=== PATIENT | male | born 1995 | race Caucasian/White ===

== ENCOUNTER 2020-08-27 09:43 | Emergency (ER) | payer MEDICAID, SELFPAY ==
[2020-08-27 10:01] VITALS: BP 109/77; PULSE 91; RESP 16; TEMP 36.6; O2SAT 98; BMI 18.8
--- NOTE | 2020-08-27 10:15 | ED.DENTAL ---
HPI - Dental/Oral General Chief complaint: Dental/Oral Stated complaint: dental pain Time Seen by Provider: 08/27/20 10:15 History of Present Illness HPI Narrative: Left-sided wisdom tooth pain on the bottom, scheduled for removal in 2 weeks, denies any fever chills Related Data Previous Rx's Medication Instructions Recorded acetaminophen 1,000 mg PO Q6H PRN #30 tab 08/27/20 ibuprofen 600 mg PO Q6H PRN #30 tab 08/27/20 oxycodone 5 mg PO Q6H PRN #20 cap 08/27/20 Allergies Allergy/AdvReac Type Severity Reaction Status Date / Time No Known Allergies Allergy Verified 08/27/20 10:17 Review of Systems Review of Systems: Positive for left wisdom tooth pain Negatives are no fever no chills no dizziness no weakness no difficulty breathing or swallowing no swelling under the tongue no skin rash no chest pain no shortness breath PMFSH Past Medical History Source: nursing notes reviewed Medical History (Updated 08/28/20 @ 00:01 by Polina Winter) No known health problems Physical Exam Vital Signs: Vital Signs: Last Vital Signs Temp 98 F 08/27/20 10:01 Pulse 91 08/27/20 10:01 Resp 16 08/27/20 10:01 BP 109/77 08/27/20 10:01 Pulse Ox 98 08/27/20 10:01 Body Mass Index 18.8 General appearance uncomfortable but no acute distress The dental exam showed a decayed tender left lower wisdom tooth, there was no trismus, voice was normal, there was no gum swelling there was no facial swelling no evidence of abscess no impairment of breathing or swallowing Pharynx was clear Neck was supple Respiratory no distress Skin no rash Extremities full range of motion x4 Course Course Course Narrative: Patient is prescribed antibiotic and analgesic and will follow-up as scheduled with his oral surgeon Discharge Plan Discharge Clinical Impression: Toothache Patient Disposition: Home, Self-Care Additional Instructions: Follow as scheduled with oral surgeon for removal of the wisdom teeth Return anytime if worse Best plan is take 2 extra-strength Tylenol, a 1000 mg 3 times a day as well as Motrin 600 mg 4 times a day and if needed you can supplement pain killers with 1 or 2 tablets of oxycodone narcotic pain medicine Continue the antibiotics Prescriptions: New ibuprofen 600 mg tablet 600 mg PO Q6H PRN (Reason: pain) Qty: 30 RF: 0 acetaminophen 500 mg tablet 1,000 mg PO Q6H PRN (Reason: pain) Qty: 30 RF: 0 oxycodone 5 mg capsule 5 mg PO Q6H PRN (Reason: pain) Qty: 20 RF: 0 Discharge Date/Time: 08/27/20 11:04
== END 2020-08-27 11:04 | disposition home or self-care (01) ==
PROVIDERS: Emergency Provider Emergency Medicine
DX: K08.89 Other specified disorders of teeth and supporting structures (principal)
CPT/HCPCS: 99281; 99283

== ENCOUNTER 2020-08-31 12:26 | Outpatient (REF) | payer MEDICAID, SELFPAY ==
[2020-08-31 14:16] LABS: COVID-19 Test Negative (Negative)
== END 2020-08-31 12:27 | disposition home or self-care (01) ==
LOC: HO.LAB 12:26
PROVIDERS: Visit Provider Internal Medicine
DX: Z20.822 Contact with and (suspected) exposure to COVID-19 (principal)
CPT/HCPCS: 36415; 87635; C9803

== ENCOUNTER 2020-12-15 07:59 | Emergency (ER) | payer MEDICAID, SELFPAY ==
[2020-12-15 08:45] VITALS: BP 101/66; PULSE 88; RESP 18; TEMP 36.7; O2SAT 100; BMI 19.3
[2020-12-15] MEDS: Ketorolac Tromethamine 15 MG/ML VIAL IM ×2 (10:17→10:19)
--- NOTE | 2020-12-15 10:41 | ED.DENTAL ---
HPI - Dental/Oral General Chief complaint: Dental/Oral Stated complaint: Dental pain Time Seen by Provider: 12/15/20 09:47 Source: patient Mode of arrival: ambulatory Limitations: no limitations History of Present Illness HPI Narrative: Patient presents to ED for wisdom tooth pain. Patient states he was informed that wisdom tooth needs to be extracted as per dentist, but patient has not followed up with the oral surgeon to remove tooth. Patient denies any facial swelling or recent trauma to the face. MD Complaint: tooth pain Related Data Previous Rx's Medication Instructions Recorded acetaminophen 1,000 mg PO Q6H PRN #30 tab 08/27/20 ibuprofen 600 mg PO Q6H PRN #30 tab 08/27/20 oxycodone 5 mg PO Q6H PRN #20 cap 08/27/20 amoxicillin-pot clavulanate 1 tab PO Q12H 10 Days #20 tab 12/15/20 [Augmentin] ketorolac 10 mg PO Q6H PRN 5 Days #20 tab 12/15/20 Allergies Allergy/AdvReac Type Severity Reaction Status Date / Time No Known Allergies Allergy Verified 08/27/20 10:17 Review of Systems Review of Systems: Yes all other systems are reviewed and are negative Constitutional: Constitutional: Reports as per HPI and Reports no additional constitutional complaints Eyes: Eyes: Reports as per HPI and Reports no additional eye complaints ENT: Reports system reviewed and no additional complaints, except as documented and Reports as per HPI Comments: Dental pain Cardiovascular: Cardiovascular: Reports as per HPI and Reports no additional cardiovascular complaints Respiratory: Respiratory: Reports as per HPI and Reports no additional respiratory complaints Gastrointestinal: Gastrointestinal: Reports as per HPI and Reports no additional gastrointestinal complaints Genitourinary: Genitourinary: Reports no additional male genitourinary complaints and Reports as per HPI Musculoskeletal: Musculoskeletal: Reports no additional musculoskeletal complaints and Reports as per HPI Neurologic: Reports system reviewed and no additional complaints, except as documented and Reports as per HPI Psychiatric: Psychiatric: Reports no additional psychiatric complaints and Reports as per HPI [facility] Past Medical History Medical History (Updated 12/15/20 @ 10:46 by HEIDI Kim) Asthma No known health problems Social History Social History Advance Directives: No Advance Directives Information Provided: No Physical Exam Vital Signs: Vital Signs: Last Vital Signs Temp 98.1 F 12/15/20 08:45 Pulse 88 12/15/20 08:45 Resp 18 12/15/20 08:45 BP 101/66 12/15/20 08:45 Pulse Ox 100 12/15/20 08:45 Body Mass Index 19.3 Const: General: cooperative, healthy appearing, comfortable, no acute distress, well developed, alert, awake and Physically active Orientation/consciousness: patient oriented x3 HENMT: Head: Yes normal to inspection, Yes No palpable skull fracture present, Yes normocephalic, Yes atraumatic and No abrasion Teeth image: 1. Tooth is very tender to palpation. Negative for any surrounding gum swelling, erythema, fluctuance, or pus discharge Eyes: General: appearance normal, both eyes and all related structures Neck: Neck: Yes normal visual inspection, Yes full ROM, Yes no lymphadenopathy, Yes no meningeal signs, Yes trachea midline and No supple Skin: General skin exam: no rashes or lesions noted and elasticity normal Neuro: General: patient oriented x3, no meningeal signs and CN's II-XI intact bilaterally Cranial nerves: Yes CN's II-XII intact bilaterally Extrem: General: Yes normal to inspection and Yes full ROM Psych: Appearance: grossly normal, well kempt and not disheveled Course Course Course Narrative: Patient given Toradol for pain relief. No indication for incision and drainage. Reevaluation(s) Reevaluation #1: Patient will be discharged with antibiotics and pain medication. Patient informed to follow-up with dentist for another referral to oral surgeon to remove wisdom tooth. Time: 10:45 MDM - Dental/Oral MDM Narrative Medical decision making narrative: Dental pain Discharge Plan Discharge Clinical Impression: Toothache Patient Disposition: Home, Self-Care Instructions: Toothache (ED) Additional Instructions: Return to the ED immediately for any facial swelling, drooling, change in voice, neck swelling, chest pain, shortness of breath, severe pain, or any other concerning symptoms. Please follow-up with your dentist for referral to oral surgeon for removal of wisdom tooth. Prescriptions: New amoxicillin-pot clavulanate [Augmentin] 875-125 mg tablet 1 tab PO Q12H 10 Days Qty: 20 RF: 0 ketorolac 10 mg tablet 10 mg PO Q6H PRN (Reason: pain) 5 Days Qty: 20 RF: 0 No Action ibuprofen 600 mg tablet 600 mg PO Q6H PRN (Reason: pain) Qty: 30 RF: 0 acetaminophen 500 mg tablet 1,000 mg PO Q6H PRN (Reason: pain) Qty: 30 RF: 0 oxycodone 5 mg capsule 5 mg PO Q6H PRN (Reason: pain) Qty: 20 RF: 0 Interventions: ED Discharge Assessment Last Done: 12/15/20 10:59 Discharge Date/Time: 12/15/20 11:00 Print Language: Estonian
== END 2020-12-15 11:00 | disposition home or self-care (01) ==
PROVIDERS: Emergency Provider Emergency Medicine Emergency Medical Services
DX: K08.89 Other specified disorders of teeth and supporting structures (principal)
CPT/HCPCS: 96372; 99283; 99284; J1885

== ENCOUNTER 2021-01-02 11:05 | Emergency (ER) | payer MEDICAID, SELFPAY ==
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
[2021-01-02 11:18] VITALS: BP 108/63; BP 122/70; PULSE 89; PULSE 97; RESP 14; TEMP 37.1; O2SAT 100; O2SAT 98; BMI 19.3
[2021-01-02] MEDS: Acetaminophen 325 MG TABLET 975 MG PO (12:51)
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
== END 2021-01-02 14:09 | disposition home or self-care (01) ==
PROVIDERS: Emergency Provider Emergency Medicine
DX: S56.911A Strain of unspecified muscles, fascia and tendons at forearm level, right arm, initial encounter (principal); S16.1XXA Strain of muscle, fascia and tendon at neck level, initial encounter; S63.92XA Sprain of unspecified part of left wrist and hand, initial encounter; S50.11XA Contusion of right forearm, initial encounter; V48.0XXA Car driver injured in noncollision transport accident in nontraffic accident, initial encounter; Y93.89 Activity, other specified; Y92.828 Other wilderness area as the place of occurrence of the external cause; Y99.9 Unspecified external cause status
CPT/HCPCS: 70450; 71250; 72125; 73090; 73130; 74176; 99284; 99285

== ENCOUNTER 2021-05-05 08:56 | Emergency (ER) | payer OTHER, SELFPAY ==
--- NOTE | 2021-05-05 09:00 | ED.GENADULT ---
HPI - General Adult General Chief complaint: ETOH/Substance Use Stated complaint: WITHDRAWAL SYMPTOMS S/P SUBOXONE USE Time Seen by Provider: 05/05/21 08:59 Source: patient Mode of arrival: ambulatory Limitations: no limitations History of Present Illness HPI narrative: feels sick after taking suboxone 5 hours after using heroin complaint: used heroin at 2am then took 8/2 suboxone in small bits this AM at 7am Onset (ago): hour(s) (2.5) Radiation: non-radiation Severity: moderate Quality: aching Pain Consistency: constant Relieving factors: none Exacerbating factors: other (using suboxone) Associated symptoms: fever/chills, loss of appetite, malaise and nausea/vomiting Treatments prior to arrival: none Related Data Previous Rx's Medication Instructions Recorded acetaminophen 500 mg tablet 1,000 mg PO Q6H PRN #30 tab 08/27/20 ibuprofen 600 mg tablet 600 mg PO Q6H PRN #30 tab 08/27/20 oxycodone 5 mg capsule 5 mg PO Q6H PRN #20 cap 08/27/20 amoxicillin 875 mg-potassium 1 tab PO Q12H 10 Days #20 tab 12/15/20 clavulanate 125 mg tablet (Augmentin) ketorolac 10 mg tablet 10 mg PO Q6H PRN 5 Days #20 tab 12/15/20 Allergies Allergy/AdvReac Type Severity Reaction Status Date / Time No Known Allergies Allergy Verified 08/27/20 10:17 Review of Systems Review of Systems: Constitutional : No Weight loss, No Fever, No Chills ENT/Mouth : No sore throat, No Rhinorrhea Eyes: No Swelling, No Redness Cardiovascular : No Chest Pain, No SOB, NoEdema Respiratory : No Cough, No Sputum, No Wheezing Gastrointestinal : Positive Nausea, no Vomiting, no Diarrhea, no abdominal Pain, No Hematochezia, No Melena Genitourinary : No Dysuria, No Urinary Frequency, No Hematuria, No Urgency Musculoskeletal : No joint pain, pos Myalgias, No Joint Swelling Skin : No Skin Lesions, No rash Neuro : No Weakness, No Numbness, No Dizziness, No Headache Psych : No Anxiety/Panic, No Depression Heme/Lymph: No Bruising, No Lymphadenopathy Endocrine : No Polyuria, No Polydipsia All other systems reviewed and are negative. [facility] Past Medical History Medical History Asthma No known health problems Social History Social History Alcohol intake: unknown Patient Tobacco Use Status: Tobacco use Unknown Use of substances other than those prescribed or required for medical reasons: Yes Substance Use Type: Heroin Substance Use Frequency: Daily Last Used Substance: Hours (ago) Advance Directives: No Advance Directives Information Provided: No Physical Exam Vital Signs: Vital Signs: Last Vital Signs Temp 98.4 F 05/05/21 16:03 Pulse 79 05/05/21 16:03 Resp 20 05/05/21 09:14 BP 100/61 05/05/21 16:03 Pulse Ox 99 05/05/21 16:03 BMI result Body Mass Index 26.6 Appearance: Alert. Oriented X3. No acute distress. At first would not talk but then was able to get a history Eyes: Pupils equal, round and reactive to light. ENT: Pharynx normal. Neck: Normal inspection. Neck supple. CVS: Normal heart rate and rhythm. Pulses normal. Respiratory: No respiratory distress. Breath sounds normal. Abdomen: Soft and non-tender. Skin: Skin warm and dry. Normal skin color. Normal skin turgor. Extremities: No lower extremity edema. Neuro: Oriented X 3. No motor deficit. No sensory deficit. Course Course Course Narrative: signed out pending possible detox with recovery coaches Medical Decision Making MDM Narrative Medical decision making narrative: 26 yo male with opiate dependence here with precipitated withdrawal after taking suboxone 5 hours after using heroin - at this time PO ativan and zofran ordered. No SI. Will observe and offer recovery coaches. Lab Data Labs: Lab Results 05/05/21 Range/Units 10:13 COVID-19 (PAYAL) Negative (Negative) COVID-19 Clin Com See Note Discharge Plan Discharge Clinical Impression: Opiate withdrawal Patient Disposition: Still a Patient Instructions: Narcotic Withdrawal (ED) Prescriptions: No Action amoxicillin-pot clavulanate [Augmentin] 875-125 mg tablet 1 tab PO Q12H 10 Days Qty: 20 RF: 0 ketorolac 10 mg tablet 10 mg PO Q6H PRN (Reason: pain) 5 Days Qty: 20 RF: 0 ibuprofen 600 mg tablet 600 mg PO Q6H PRN (Reason: pain) Qty: 30 RF: 0 acetaminophen 500 mg tablet 1,000 mg PO Q6H PRN (Reason: pain) Qty: 30 RF: 0 oxycodone 5 mg capsule 5 mg PO Q6H PRN (Reason: pain) Qty: 20 RF: 0
[2021-05-05 09:06] VITALS: BP 122/64; PULSE 88; O2SAT 100
[2021-05-05 09:14] VITALS: BP 109/89; PULSE 87; RESP 20; O2SAT 97; BMI 26.6
[2021-05-05 09:20] VITALS: PULSE 87
[2021-05-05] MEDS: Ondansetron ODT 4 MG TAB.RAPDIS TRANSLINGU (09:37)
[2021-05-05] MEDS: LORazepam 1 MG TABLET 2 MG PO (09:49)
[2021-05-05 10:46] LABS: COVID-19 Test Negative (Negative); IDNOW Serial# 08D9AD1C
--- NOTE | 2021-05-05 11:12 | MHC.RECOVSUP ---
Addendum entered by Power Rivera 05/05/21 13:02: Checked in on patient and patient was hard to arouse and still sleeping. Original Note: ? Reason for consult:Recovery support o Current location:[facility] o Identified substance use concern:Heroine - Withdrawal - Seeking ATS (detox) - Support ? Intervention: o ATS bed search started/completed/in process o Community resources provided o Harm reduction discussion ? Plan: o Bed search in progress to o Patient awaiting crisis evaluation o Patient to follow up with [facility] after discharge ? Additional information:Patient in precipitated withdrawel, pt. on ativan and is unncooperative due to sleep. Failed to get through an intake.
--- NOTE | 2021-05-05 14:02 | MHC.RECOVRN ---
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 Pt informed RC of desire to go to ATS, RC had Marquita on the phone this morning for an intake, pt did not engage on the phone to complete intake. Beds at have since been filled. RC briefly spoke with pt at 1350, pt reported desire to continue ATS bedsearch however would not answer any further questions asked by RC.
[2021-05-05 16:03] VITALS: BP 100/61; PULSE 79; TEMP 36.9; O2SAT 99
[2021-05-05] MEDS: LORazepam 1 MG TABLET PO ×2 (16:48→21:21)
[2021-05-05 20:39] LABS: Amphetamine Screen Urine Not Detected (Not Detect); Barbiturates, Urine Not Detected (Not Detect); Benzodiazepines Screen Urine Not Detected (Not Detect); Cannabinoid Screen Urine POSITIVE (Not Detect); Cocaine Screen Urine POSITIVE (Not Detect); Fentanyl, urine POSITIVE (Not Detect); Opiate Screen Urine POSITIVE (Not Detect); Phencyclidine Screen Urine Not Detected (Not Detect)
--- NOTE | 2021-05-05 21:34 | MHC.RECOVSUP ---
? Reason for consult: Recovery Support o ? ? ?Current location: ?[facility] o ? ? ?Identified substance use concern: ?Herione - Overdose - Withdrawal - Seeking ATS (detox) - Support ? ?Intervention: o Community resources provided o Harm reduction discussion ? Plan: o Referral to [facility] o Follow up tomorrow ? ? Additional information: I was able to connect with PT and provided community resources. Pt is willing to go to [facility]. I called but wasn't able to get someone on the phone in addition to other detox's in the area. Consulted with care team.
[2021-05-05 22:01] VITALS: BP 102/58; PULSE 90; RESP 18; TEMP 36.8; O2SAT 96
[2021-05-05 23:17] VITALS: PULSE 90
[2021-05-06 01:09] VITALS: BP 113/66; PULSE 100; RESP 17; TEMP 36.7; O2SAT 98
[2021-05-06] MEDS: LORazepam 1 MG TABLET 2 MG PO ×3 (02:32→11:34)
[2021-05-06 06:20] VITALS: PULSE 88
--- NOTE | 2021-05-06 06:59 | PC.NURSE ---
Patient was up most o the night, finally settling down, patient is in precipitated withdrawal, scored 8 on COW, administered Ativan 2 mg this morning at 0620, patient is referred to track coach for detox bed search, patient may go to [facility], patient loud and needy, VSS, will continue to monitor.
--- NOTE | 2021-05-06 07:28 | PC.NURSE ---
patient appears to remain at rest at present respirations even and unlabored patient expressive periodically re: wd sx. patient appears in no distress
--- NOTE | 2021-05-06 14:25 | MHC.CARE ---
CARE Team clinician met with patient in 6 to screen for stability for detox. He was in bed, alert and oriented, made eye appropriate eye contact and answered all questions asked, apologized for being rude after one abrupt answer, said he is feeling very sick. Patient was able to give more information about, ?hearing things,? explained that he is not currently having that experience but has in the past and he denied having any visual hallucinations. He stated that he has heard noises when under the influence or in withdrawal, patient?s baseline is unclear as he is unknown to [facility]. Patient denied suicidal ideation, plan or intention and said he has no history of attempts and has never been hospitalized for psychiatric reasons and is not currently taking any medication. He did, however, admit to suffering from anxiety and depression especially because he has continued to use drugs. Patient would benefit from outpatient therapy; CARE Team will put in a referral to [facility] and they will call patient directly to schedule an intake. Patient does not appear psychotic or responding to internal stimuli and is not having a mental health crisis, does not need inpatient psychiatric treatment.
== END 2021-05-06 16:04 | disposition home or self-care (01) ==
PROVIDERS: Emergency Medicine; Emergency Provider Emergency Medicine
DX: F11.23 Opioid dependence with withdrawal (principal); J45.909 Unspecified asthma, uncomplicated; Z20.822 Contact with and (suspected) exposure to COVID-19
CPT/HCPCS: 36415; 80307; 87635; 99284; 99285

== ENCOUNTER 2023-11-09 10:13 | Emergency (ER) | payer OTHER, SELFPAY ==
[2023-11-09 10:18] VITALS: BP 136/66; PULSE 86; O2SAT 99
[2023-11-09 10:21] VITALS: BP 117/57; PULSE 76; RESP 17; TEMP 36.6; O2SAT 99; BMI 24.7
--- NOTE | 2023-11-09 10:47 | ED_ITS ---
HPI - Psych General Chief Complaint: ETOH/Substance Use Stated Complaint: SMOKED UNKNOWN SUBSTANCE ACTING ERRATIC PER EMS Time Seen by Provider: 11/09/23 10:22 Source: patient and old records reviewed Mode of arrival: EMS Limitations: other (poor historian) History of Present Illness ED Provider: CHAVA BRADFORD Narrative: 28 yo male with hx of substance abuse - reportedly was not acting right and police were called he then admitted to using drugs to EMS but will not state which ones. He has no complaints no signs of head trauma. He denies SI. MD complaint: substance abuse Onset (ago): year(s) Duration: intermittent History of same: Yes Relieving factors: none Exacerbating factors: drug use Context: recent drug abuse Associated psychiatric symptoms: none Associated symptoms: denies other symptoms Related Data Previous Rx's ?Medication ?Instructions ?Recorded acetaminophen 500 mg tablet 1,000 mg (2 x 500 mg) PO Q6H PRN 08/27/20 pain #30 tabs ibuprofen 600 mg tablet 600 mg PO Q6H PRN pain #30 tabs 08/27/20 oxycodone 5 mg capsule 5 mg PO Q6H PRN pain #20 caps 08/27/20 amoxicillin 875 mg-potassium 1 tab PO Q12H 10 days #20 tabs 12/15/20 clavulanate 125 mg tablet (Augmentin) ketorolac 10 mg tablet 10 mg PO Q6H PRN pain 5 days #20 12/15/20 tabs Allergies Allergy/AdvReac Type Severity Reaction Status Date / Time No Known Allergies Allergy Verified 11/09/23 10:23 Review of Systems Review of Systems: Constitutional : No Fever, No Chills, No Fatigue ENT/Mouth : No sore throat, No Rhinorrhea Eyes: No Eye Pain, No Swelling, No Redness Cardiovascular : No Chest Pain, No SOB, No Dyspnea on Exertion Respiratory : No Cough, No Sputum Gastrointestinal : No Nausea, No Vomiting, No Diarrhea, No abdominal Pain Genitourinary : No Dysuria, No Urinary Frequency, No Hematuria, Musculoskeletal : No joint pain, No Myalgias, No Joint Swelling Skin : No Skin Lesions, No rash Neuro : No Weakness, No Numbness, No Dizziness, no Headache Psych : No Anxiety/Panic, No Depression All other systems reviewed and are negative PMFSH Past Medical History Attestation statement: The following information was validated with the patient. Source: old records reviewed Medical History (Updated 11/09/23 @ 15:10 by Dania Armstrong DO) Substance abuse Asthma No known health problems Social History Social History Alcohol intake: unknown Patient Tobacco Use Status: Tobacco use Unknown Substance Use Type: Heroin Advance Directives: No Physical Exam Vital Signs: Vital Signs: Last Vital Signs Temp 98.3 F 11/09/23 13:53 Pulse 73 11/09/23 13:53 Resp 16 11/09/23 13:53 BP 116/57 L 11/09/23 13:53 Pulse Ox 100 11/09/23 13:53 O2 Del Method Room Air 11/09/23 13:53 BMI result Body Mass Index 24.7 Appearance: appears under the influence Oriented X3. No acute distress. Eyes: Pupils small but equal, round and reactive to light. ENT: Pharynx normal. atraumatic Neck: Normal inspection. Neck supple. CVS: Normal heart rate and rhythm. Pulses normal. Respiratory: No respiratory distress. Breath sounds normal. Abdomen: Soft and nontender. atraumatic Skin: Skin warm and dry. Normal skin color. Normal skin turgor. Extremities: No lower extremity edema. No calf ttp Neuro: Oriented X 3. No motor deficit. No sensory deficit. Course Course Course Narrative: responds to tactile stimuli and verbal stimuli 310pm Reevaluation(s) Reevaluation #1: signed out to Dr. Prado pending improvement Medical Decision Making Medical Decision Making MDM Narrative: 28 yo male who is here no signs of trauma he is oriented x 3 but appears under the influence and admits to drugs but denies SI - at this time will need drug screen and poc will monitor until more awake. Differential Diagnosis Differential Diagnoses: The differential diagnosis associated with the presentation includes substance abuse Admission/Observation Consideration of admission/observation: Escalation of care including admission/observation considered will monitor until more awake and sober Lab Data [facility] Lab Attestation statement: I reviewed the patient's lab results. Labs: Lab Results 11/09/23 Range/Units 11:00 POC Glucose 104 (60-115) mg/dL Independent Historian Clinical information obtained from an independent historian. History obtained from or confirmed by: EMS External Record Review External record reviewed: Inpatient record Discharge Plan Discharge Clinical Impression: Polysubstance abuse Patient Disposition: Still a Patient Instructions: Polysubstance Abuse (ED) Additional Instructions: stop using drugs consider detox Prescriptions: No Action amoxicillin-pot clavulanate [Augmentin] 875-125 mg tablet 1 tab PO Q12H 10 Days Qty: 20 0RF ketorolac 10 mg tablet 10 mg PO Q6H PRN (Reason: pain) 5 Days Qty: 20 0RF Rx Instructions: Patient received Toradol 30 IM in ED ibuprofen 600 mg tablet 600 mg PO Q6H PRN (Reason: pain) Qty: 30 0RF acetaminophen 500 mg tablet 1,000 mg PO Q6H PRN (Reason: pain) Qty: 30 0RF oxycodone 5 mg capsule 5 mg PO Q6H PRN (Reason: pain) Qty: 20 0RF Rx Instructions: Narcotic, no driving for 6 hours after taking this medication Print Language: Colombian
[2023-11-09 11:30] LABS: Glucose, Whole Blood 104 mg/dL (60-115)
[2023-11-09 12:06] VITALS: BP 114/60; PULSE 72; RESP 18; TEMP 36.8; O2SAT 99
--- NOTE | 2023-11-09 12:32 | PC.NURSE ---
VS WNL, CONTINUES TO SLEEP IN HALLWAY. SKIN WARM, DRY, COLOUR APPROPRIATE FOR ETHNICITY.
[2023-11-09 13:53] VITALS: BP 116/57; PULSE 73; RESP 16; TEMP 36.8; O2SAT 100
--- NOTE | 2023-11-09 14:52 | PC.NURSE ---
PT EASILY ROUSED FROM SLEEP.
[2023-11-09 16:25] VITALS: BP 116/57; PULSE 73; RESP 16; TEMP 36.8; O2SAT 100
--- OUTSIDE RECORDS SUMMARY | 2023-11-16 06:21 | XMS_ITS | Continuity of Care Document ---
Author Organization [facility] ter Address [address] [place] [id number]- Care Team Providers Care Durable Medical Equipment Technician Name Role Phone Not on Staff, PCP Primary Care Physician Unavail able Encounter [facility] Date(s): 04/06/21 - 04/06/[address] [address]- Encounter Diagnosis Finger injury(Final) - 04/06/21 Discharge Disposition: A-D/C Home Attending Physician: Gino Bernard MD Admitting Physician: Gino Bernard MD Referring Physician: Not on Staff, Referring MD Allergies, Adverse Reactions, Alerts No Known Medication Allergies Immunizations Given and Recorded Vaccine Date Status Refusal Reason tetanus/diphtheria/pertussis, acel(Tdap) 04/06/21 Given Meningococcal Conjugate Vaccine 11/16/07 Given tetanus-diphtheria toxoids (Td) 11/16/07 Given Measles/Mumps/Rubella Virus Vaccine 04/11/00 Given Measles/Mumps/Rubella Virus Vaccine 05/01/97 Given Poliovirus Vaccine, Inactivated 04/11/00 Given Poliovirus Vaccine, Inactivated 01/29/97 Given Poliovirus Vaccine, Inactivated 96 Given Poliovirus Vaccine, Inactivated 96 Given diphtheria/tetanus/pertussis, acel(DTaP) 04/11/00 Given diphtheria/tetanus/pertussis, acel(DTaP) 07/01/97 Given diphtheria/tetanus/pertussis, acel(DTaP) 01/29/97 Given diphtheria/tetanus/pertussis, acel(DTaP) 96 Given diphtheria/tetanus/pertussis, acel(DTaP) 96 Given Varicella Virus Vaccine 05/01/97 Given hepatitis B pediatric vaccine 01/29/97 Given hepatitis B pediatric vaccine 96 Given hepatitis B pediatric vaccine 96 Given Haemophilus B conjugate (HbOC) vaccine 96 Gi melony Haemophilus B conjugate (HbOC) vaccine 96 Gi melnoy Haemophilus B conjugate (HbOC) vaccine 96 Gi melony Medications cephalexin monohydrate 500 mg oral capsule 1 capsule = 500 mg, By Mouth, 4 times a day, for 10 days, # 40 capsule, 0 Refills, Acute 04/16/21 18:24:00 EST, 04/06/21 18:24:00 EST, Capsule, [id number], Partial fill upon patient request if the prescription is for a schedule II opioid drug. Start Date: 04/06/21 Stop Date: 04/16/21 Status: Ordered Results Radiology Reports * Exam Date Time Procedure Performing Provider Status 04/06/21 6:01 PM Finger 2nd Left Hand Elba Valdez; Maria Elena (Verified) Notes: (Finger 2nd Left Hand) Reason For Exam: Decreased ROM RESULT: Finger 2nd Left Hand Finger 2nd Left Hand, 3 views Hx of Present Illness: Patient was using nail gun, nail penetrating through left 2nd digit glove.; Reason: Decreased ROM; Clinical Question(s): Fracture COMPARISON: X-ray left second finger from earlier the same day FINDINGS: There is an oblique lucency with associated cortical step-off noted along the lateral aspect of thedistal portion of the proximal phalanx of the second finger, suggestive of fracture, related to therecent nail gun injury. The fracture line appears to course through the proximal interphalangeal joint. No definite acute fracture line seen at the base of the middle phalanx of the second finger. No arthritic changes. Diffuse soft tissue swelling of the second finger noted. IMPRESSION: Interval removal of the previously noted metallic foreign body in the left second finger, which reveals a linear minimally displaced fracture at the lateral basal aspect of the proximal phalanx of the second finger, with probable intra-articular extension. WSN: [id number] Ordering Physician: Preeti Vallecillo Dictated By: Loren Funk MD Dictated Date/Time: 04/06/21 6:07 pm Reviewed By: Loren Funk MD Signed By: Loren Funk MD Signed Date/Time: 04/06/21 6:07 pm Transcribed By: MACEY Transcribed Date/Time: 04/06/21 6:03 pm * Exam Date Time Procedure Performing Provider Status 04/06/21 4:01 PM Hand Min 3 Views Left Octavio rBonson damari; Auth (Verified) Notes: (Hand Min 3 Views Left) Reason For Exam: with Pain;Trauma RESULT: Hand Min 3 Views Left Examination: Left hand performed on 04/06/2021. History: Hx of Present Illness: Pt was working with a nailgun when the nail went through his left index finger, nail is currently still in finger, pt moaning in pain unable to sit still.; Reason: Trauma; with Pain; Clinical Question(s): Fracture; Special Instructions: This is a protocol film and radiologist should call any findings to the Charge Nurse Findings: Frontal, oblique, and lateral views of the left hand are submitted. A metallic nail is seen projecting over the second proximal interphalangeal joint, likely within the bone. No definite fractures are seen. IMPRESSION: Foreign body traversing the second digit as described. WSN: [id number] Ordering Physician: Master Lutz Dictated By: Jessie Zavaleta MD Dictated Date/Time: 04/06/21 4:05 pm Reviewed By: Jessie Zavaleta MD Signed By: Jessie Zavaleta MD Signed Date/Time: 04/06/21 4:05 pm Transcribed By: MACEY Transcribed Date/Time: 04/06/21 4:04 pm Vital Signs Most recent to oldest [Reference Range]: 1 2 3 Oxygen Saturation [94-100 %] 99 % (04/06/21 6:22 PM) 100 % (04/06/21 4:22 PM) 99 % (04/06/21 3:30 PM) Pulse Rate [55-90 bpm] 68 bpm (04/06/21 6:22 PM) 79 bpm (04/06/21 4:22 PM) 97 bpm *H* (04/06/21 3:30 PM) Blood Pressure [90-138/55-84 mm Hg] 106/64mm Hg (04/06/21 6:22 PM) 96/52mm Hg (04/06/21 4:22 PM) 138/78mm Hg (04/06/21 3:30 PM) Respiratory Rate [16-30 br/min] 16 br/min (04/06/21 6:22 PM) 18 br/min (04/06/21 4:22 PM) 20 br/min (04/06/21 3:30 PM) Temperature [96.8-100.4 DegF] 98.4 DegF (04/06/21 6:22 PM) 98.7 DegF (04/06/21 3:30 PM) Mode of Delivery (Oxygen) Room air (04/06/21 6:22 PM) Room air (04/06/21 4:22 PM) Room air (04/06/21 3:30 PM) Blood pressure sites Arm, left (04/06/21 6:22 PM) Arm, left (04/06/21 4:22 PM) Arm, right (04/06/21 3:30 PM) Temperature Route Oral (04/06/21 6:22 PM) Oral (04/06/21 3:30 PM)
== END 2023-11-09 16:26 | disposition home or self-care (01) ==
PROVIDERS: Emergency Provider Emergency Medicine
DX: F19.10 Other psychoactive substance abuse, uncomplicated (principal)
CPT/HCPCS: 82947; 99282; 99284